=== PATIENT | female | born 1990 | race American Indian/Alaskan Native ===

== ENCOUNTER 2016-10-13 15:24 | Emergency (ER) | payer MEDICAID ==
--- NOTE | 2016-10-13 19:47 | Emergency Department Report ---
Vomiting/Diarrhea - [facility] Chief Complaint: Nausea/Vomiting/Diarrhea Stated Complaint: VOMITING/WEAKNESS Duration: 2 Days Severity: moderate Nausea/Vomiting Severity: Moderate Other History: 25-year-old HIV positive patient comes in for nausea and vomiting 2 days. She reports that she had vomited 6 times yesterday and 2 times today. She denies any abdominal pain no diarrhea no painful urination no fever no chills. She last vomited today about 2 PM. She has not tried to drink or eat anything since then. She is followed by infectious disease associated [facility]. ED Review of Systems ROS: Stated complaint: VOMITING/WEAKNESS Other details as noted in HPI ED Past Medical Hx - Past Medical History Previous Medical History?: Yes Hx Headaches / Migraines: Yes (migraines) Hx HIV: Yes - Surgical History Past Surgical History?: Yes Additional Surgical History: x 3 - Social History Smoking Status: Former Smoker Substance Use Type: Prescribed - Medications Home Medications: Home Medications Medication Instructions Recorded Confirmed Last Taken Type Elvitegr/Cobicist/Emtric/Tenof 1 each PO DAILY 04/30/16 05/12/16 10/12/16 History [Stribild Tablet] Loratadine [Claritin] 10 mg PO DAILY #30 tablet 08/28/16 10/12/16 Rx Ondansetron [Zofran Odt] 4 mg PO Q8HR #12 tab.rapdis 10/13/16 Unknown Rx Prednisone [predniSONE 10 mg 10 mg PO .TAPER 10/13/16 10/13/16 Unknown History (6-Day Pack, 21 Tabs)] Vomiting Diarrhea Exam - Exam General: Vital signs noted. No distress. Alert and acting appropriately. HEENT: No Pharyngeal Erythema, No Pharyngeal Exudates, No Moist Mucous Membranes , No Rhinorrhea, No Conjuctival Injection Neck: No Adenopathy, No Rigidity Lungs: Yes Clear Lung Sounds, Yes Good Air Exchange, No Wheezes, No Stridor, No Cough, No Nasal Flaring, No Retractions, No Use of Accessory Muscles Heart exam: Regular: Yes, Murmur: No, Tachycardia: No Abdomen: Tenderness: No, Peritoneal Signs: No, Distention: No, Hyperactive Bowel sounds: No Skin exam: Rash: No, Edema: No, Normal turgor: Yes Neurologic: Alert and oriented, no deficits. Musculoskeletal: Unremarkable. ED Course Vital Signs 10/13/16 16:09 Temperature 98 F Pulse Rate 74 Respiratory 20 Rate Blood Pressure 118/65 O2 Sat by Pulse 99 Oximetry - Reevaluation(s) Reevaluation #1: 10/13/16 22:43 Patient reports that she feels better since having the Zofran. ED Medical Decision Making - Medical Decision Making Patient's been evaluated by this provider in fast track. We will do a urine test Tylenol for headache. We will try a by mouth trial and see how well she holds that down. She verbalized understanding. Patient was given Zofran 8 mg by mouth. She has not vomited since her course here at the emergency room. We would discharge patient on Zofran discussed BRAT diet he can follow with the primary care provider. Critical care attestation.: If time is entered above; I have spent that time in minutes in the direct care of this critically ill patient, excluding procedure time. ED Disposition Clinical Impression: Nausea & vomiting Qualifiers: Vomiting type: unspecified Vomiting Intractability: intractable Qualified Code( s): R11.2 - Nausea with vomiting, unspecified Disposition: DISCHARGED TO HOME OR SELFCARE Is pt being admited?: No Does the pt Need Aspirin: No Condition: Stable Instructions: Acute Nausea and Vomiting (ED) Additional Instructions: Follow-up with the primary care provider or emergency room if vomiting continues. Prescriptions: Ondansetron [Zofran Odt] 4 mg PO Q8HR #12 [email or web address] Referrals: ANGELITA NIETO [Registered Nurse] - 3-5 Days Forms: Work/School Release Form(ED)
[2016-10-13] MEDS: TYLENOL PO ONE (20:07)
[2016-10-13] MEDS: ZOFRAN ODT PO ONE (20:50)
[2016-10-13 23:54] VITALS: BP 109/69
== END 2016-10-13 22:43 | disposition home or self-care (01) ==
LOC: ED 15:24
DX: R11.2 Nausea with vomiting, unspecified (principal); G43.909 Migraine, unspecified, not intractable, without status migrainosus; Z87.891 Personal history of nicotine dependence; Z21 Asymptomatic human immunodeficiency virus [HIV] infection status
CPT/HCPCS: 81025; 99282; Q0162

== ENCOUNTER 2020-10-23 16:50 | Emergency (ER) | payer MEDICAID ==
[2020-10-23] MEDS ORDERED: predniSONE 20 MG TAB PO ONE (18:03)
[2020-10-23] MEDS ORDERED: KETOROLAC 60 MG/2 ML INJ IM ONE (18:03)
[2020-10-23 19:04] LABS: Bacteria,Urine 1+ /HPF (Negative); Bilirubin,Urine NEG (Negative); Blood,Urine NEG (Negative); Color,Urine Yellow (Yellow); Mucus,Urine FEW /HPF; Protein,Urine <15 mg/dL mg/dL (Negative); RBC,Urine < 1.0 /HPF (0.0-6.0); Urobilinogen,Urine < 2.0 mg/dL (<2.0)
[2020-10-23 19:05] LABS: HCG Qualitative,Urine Negative (Negative)
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
[2020-10-23 19:38] VITALS: BP 107/71
== END 2020-10-23 19:00 | disposition home or self-care (01) ==
LOC: ED 16:50
DX: S39.012A Strain of muscle, fascia and tendon of lower back, initial encounter (principal); G43.909 Migraine, unspecified, not intractable, without status migrainosus; F17.200 Nicotine dependence, unspecified, uncomplicated; Z79.1 Long term (current) use of non-steroidal anti-inflammatories (NSAID); Z79.2 Long term (current) use of antibiotics; Z79.899 Other long term (current) drug therapy; Z98.890 Other specified postprocedural states; Z21 Asymptomatic human immunodeficiency virus [HIV] infection status; Z88.8 Allergy status to other drugs, medicaments and biological substances; X50.1XXA Overexertion from prolonged static or awkward postures, initial encounter; Y93.89 Activity, other specified; Y92.89 Other specified places as the place of occurrence of the external cause; Y99.8 Other external cause status
CPT/HCPCS: 81001; 81025; 96372; 99283; J1885; J7512